=== PATIENT | female | born 1980 | race African-American/Black ===

== ENCOUNTER 2019-11-30 13:54 | Emergency (ER) | payer MEDICARE, SELFPAY ==
--- NOTE | ~2019-11-30 | US_ITS ---
EXAMINATION: US pelvic complete w TV DATE: 11/30/2019 15:09 INDICATION: Vaginal bleeding, bilateral lower abdominal pain TECHNIQUE: Multiple transabdominal and endovaginal sonographic images of the pelvis were obtained. COMPARISON: 12/15/2009 FINDINGS: The uterus measures 10.1 x 6.5 x 5.3 cm. The endometrial complex measures 19 mm. The right ovary measures 3.1 x 1.3 x 1.5 cm. The left ovary measures 2.9 x 2.6 x 2.9 cm and contains simple cys ts measuring up to 1.7 cm. There is normal vascular flow in the ovaries. There is no free fluid in th e pelvis. IMPRESSION: 1. Endometrial thickening which may be due to hyperplasia, polyp, or malignancy. Endometrial sampling is recommended. Reviewed, dictated and finalized at location A. IMPRESSION: 1. Endometrial thickening which may be due to hyperplasia, polyp, or malignancy . Endometrial sampling is recommended.
[2019-11-30 13:58] VITALS: BP 115/70; PULSE 76; RESP 18; TEMP 36.4; O2SAT 100
--- NOTE | 2019-11-30 14:19 | ED.ABDPAIN ---
HPI - Abdominal Pain General Chief Complaint: Vaginal Bleeding Stated Complaint: vaginal bleeding, using 6 pads per day Time Seen by Provider: 11/30/19 14:04 Source: RN notes reviewed History of Present Illness HPI narrative: Patient presents emergency department from home for vaginal bleeding. Patient states that for the past 14 days she is been having heavy vaginal bleeding going through approximately 6 pads a day. Patient states that starting 5 days ago she began to have bilateral lower abdominal pain described as cramping. She denies any fevers or chills chest pain shortness of breath nausea vomiting or any other symptoms states she is taking no pain medication today. 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 Data Allergies Allergy/AdvReac Type Severity Reaction Status Date / Time No Known Allergies Allergy Mild Verified 11/30/19 15:07 Review of Systems Review of Systems: Narrative: Gen.: Denies fevers or chills ENT: Denies congestion Respiratory: Denies shortness of breath or cough CV: Denies chest pain or palpitations GI: Reports lower abdominal pain denies nausea vomiting or diarrhea see HPI Musculoskeletal: Denies back pain or muscle pain Neuro: Denies numbness, tingling, weakness or focal weakness Skin: Denies rash Except as documented, all other systems reviewed and negative PMFSH Past Medical History Medical History (Updated 11/30/19 @ 15:50 by Sebastien Barroso DO) Patient denies significant medical history Family History Family History (Updated 03/05/19 @ 14:24 by DOCTOR UNKNOWN) Mother Diabetes mellitus Family history of mental disorder Depression Hypertension Father Hypertension Family history of liver disease Other Family history of cardiovascular disease Family history of malignant neoplasm Social History Social History Smoking status: Never smoker Alcohol intake: never Exam Narrative: Exam Narrative: APPEARANCE: No acute distress, nontoxic, resting in bed HEENT: Normocephalic, atraumatic, OMM RESPIRATORY: No respiratory distress, clear to auscultation bilaterally with no rhonchi wheezing or rales CARDIOVASCULAR: RRR s murmur ABDOMINAL: Soft, nondistended, tender palpation right lower quadrant left lower quadrant, no tenderness right upper quadrant left upper quadrant, no rebound or guarding : Normal external exam, moderate on document blood with clots in vaginal canal, cervix closed, no adnexal tenderness, no cervical motion tenderness MUSCULOSKELETAl: Moves all extremities. No clubbing, cyanosis or edema. NEURO: Awake and alert. Following commands, speech normal, no focal deficits SKIN:: Warm, dry. Normal Color PSYCHIATRIC: Normal affect/mood Course Course Emergency Course: Discussed with Dr. Lopez presentation work-up. Agrees with plan for discharge and follow-up as an outpatient Patient states that they are feeling much better at this time. States abdominal pain has resolved. Repeat abdominal exam shows the patient's abdomen to be soft and nontender. Discussed with patient results of workup and diagnosis. Discussed need for follow-up with primary care physician, reasons to return to the emergency department in proper use of medication. Patient understands and agrees to current treatment plan discussed thickened Ifrah need to follow with Dr. 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
[2019-11-30] MEDS: SODIUM CHLORIDE 0.9% IV 1,000 ML 999 ML IV CONT (15:08)
[2019-11-30 15:10] LABS: Basophils Percent Auto 0.3 % (0.2-1.2); Eosinophils Absolute Auto 0.2 K/mm3 (0-0.3); Eosinophils Percent Auto 2.1 % (0-4.4); Hematocrit 34.7 % (37.0-47.0); Hemoglobin 11.5 g/dL (12.0-15.0); Immature Granulocyte Absolute 0.01 K/mm3 (0.00-0.031); Immature Granulocyte Percent A 0.1 % (0-0.5); Lymphocytes Absolute Auto 2.73 K/mm3 (0.9-3.2); Lymphocytes Percent Auto 35.5 % (18.3-44.2); Mean Corpuscular HGB Conc 33.1 g/dl (32-36); Mean Corpuscular Volume 90.6 fl (80-100); Mean Platelet Volume 12.2 fl (7.4-10.4); Monocytes Absolute Auto 0.5 K/mm3 (0.1-0.6); Monocytes Percent Auto 6.1 % (2.6-8.5); Neutrophils Absolute Auto 4.3 K/mm3 (1.3-6.7); Neutrophils Percent Auto 55.9 % (45.5-73.1); Platelet Count Result 161 k/mm3 (150-375); Red Blood Count 3.83 M/mm3 (4.2-5.4); Red Cell Distribution Width 13.1 % (11.5-14.5); White Blood Count 7.7 K/mm3 (4.5-10.0)
[2019-11-30 15:18] LABS: Prothrombin Time 12.7 Seconds (11.1-14.7)
[2019-11-30 15:19] LABS: Partial Thromboplastin Time 27.8 SECONDS (22.3-36.8)
[2019-11-30 15:25] LABS: Alanine Aminotransferase 18 U/L (4-35); Alkaline Phosphatase 81 U/L (38-126); Aspartate Amino Transferase 22 U/L (14-36); Bilirubin,Total 0.4 mg/dL (0.2-1.3); Blood Urea Nitrogen 8 mg/dL (7-17); Calcium 9.1 mg/dL (8.4-10.2); Carbon Dioxide 30 mmol/L (22-30); Chloride 103 mmol/L (98-107); Estimated CRCL calculation 109 ml/min; Estimated Glomerular Filt Rate > 60; Glucose 93 mg/dL (65-105); Lipase 123 U/L (23-300); Potassium 3.6 mmol/L (3.4-5.0); Sodium 137 mmol/L (137-145)
[2019-11-30 16:20] VITALS: BP 122/67; PULSE 54; RESP 16; O2SAT 100
== END 2019-11-30 16:25 | disposition home or self-care (01) ==
PROVIDERS: Emergency Provider Emergency Medicine
DX: N93.8 Other specified abnormal uterine and vaginal bleeding (principal); R10.32 Left lower quadrant pain; R10.31 Right lower quadrant pain
CPT/HCPCS: 36415; 76830; 76856; 80053; 81025; 83690; 85025; 85610; 85730; 86850; 86900; 86901; 96374; 99284; J0131; J7030

== ENCOUNTER 2019-12-04 13:11 | Emergency (ER) | payer MEDICARE, SELFPAY ==
[2019-12-04 13:28] VITALS: BP 123/81; PULSE 84; RESP 18; TEMP 36.2; O2SAT 97
--- NOTE | 2019-12-04 13:42 | PC.NURSE ---
PT STATES SHE CALLED HER PCP AND IS GOING TO BE SEEN AT THE OFFICE, DECLINED TO BE SEEN IN THIS ED, LEFT PRIOR TO ER MD SEEING PT
[2019-12-04 13:47] LABS: Basophils Percent Auto 0.1 % (0.2-1.2); Eosinophils Absolute Auto 0.2 K/mm3 (0-0.3); Eosinophils Percent Auto 2.1 % (0-4.4); Hematocrit 30.7 % (37.0-47.0); Hemoglobin 10.1 g/dL (12.0-15.0); Immature Granulocyte Absolute 0.03 K/mm3 (0.00-0.031); Immature Granulocyte Percent A 0.4 % (0-0.5); Lymphocytes Absolute Auto 2.54 K/mm3 (0.9-3.2); Lymphocytes Percent Auto 31.8 % (18.3-44.2); Mean Corpuscular HGB Conc 32.9 g/dl (32-36); Mean Corpuscular Hemoglobin 30.2 pg (26-34); Mean Corpuscular Volume 91.9 fl (80-100); Mean Platelet Volume 12.6 fl (7.4-10.4); Monocytes Absolute Auto 0.4 K/mm3 (0.1-0.6); Monocytes Percent Auto 4.4 % (2.6-8.5); Neutrophils Absolute Auto 4.9 K/mm3 (1.3-6.7); Neutrophils Percent Auto 61.2 % (45.5-73.1); Platelet Count Result 176 k/mm3 (150-375); Red Blood Count 3.34 M/mm3 (4.2-5.4); Red Cell Distribution Width 13.5 % (11.5-14.5)
== END 2019-12-04 13:42 | disposition left against medical advice (07) ==
PROVIDERS: Emergency Medicine; Emergency Provider Emergency Medicine
DX: Z53.21 Procedure and treatment not carried out due to patient leaving prior to being seen by health care provider (principal)
CPT/HCPCS: 36415; 85025; 99199

== ENCOUNTER 2019-12-20 08:11 | Emergency (ER) | payer MEDICARE, MEDICAID, SELFPAY ==
[2019-12-20] VITALS (17 sets, daily range): BP systolic 106–126; BP diastolic 66–99; PULSE 65; RESP 18; TEMP 36.3; O2SAT 100
--- NOTE | ~2019-12-20 | US_ITS ---
EXAMINATION:US venous doppler LE BI INDICATION:Bilateral leg pain and swelling TECHNIQUE: Multiple grayscale, color flow and Doppler images of the lower extremity deep venous syste ms were obtained and reviewed. COMPARISON:No prior studies for comparison. FINDINGS: The common femoral, superficial femoral and popliteal veins demonstrate normal respiratory variation, augmentation and compressibility. Color flow is also seen within the posterior tibial, pe roneal, greater saphenous and profunda veins. There is mildly prominent right inguinal lymph node, li mor reactive. IMPRESSION: 1: No lower extremity deep venous thrombosis. Reviewed, dictated and finalized at location A.
--- NOTE | ~2019-12-20 | XR_ITS ---
XR foot RT min 3V, XR foot LT min 3V 12/20/2019 10:17 Indication: Bilateral foot pain Procedure: 4 views of each foot Comparison: No prior studies for comparison. Findings: There is mild degenerative change of the first MTP joints bilaterally with hallux valgus. N o acute fracture or dislocation is identified. Lisfranc joint and is intact. 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 Reviewed, dictated and finalized at location A. 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
--- NOTE | 2019-12-20 08:57 | ED.LOWEXIN ---
HPI - Extremity Injury (Lower) General Chief Complaint: Extremity Injury, Lower Stated Complaint: ankles hurting Time Seen by Provider: 12/20/19 08:40 Source: patient Mode of arrival: ambulatory Limitations: no limitations History of Present Illness HPI Narrative: This patient is a 39 year old female who presents with complaint of bilateral feet pain. She states she had a D and C performed 8 days ago for heavy menstrual cycle, and she has had bilateral feet pain and swelling since her procedure. She had pain with walk and she states this pain goes up to her calf . Her swelling has improved since her procedure. She reports history of swelling but she states it was due to her having gallstones. She denies chest pain or shortness of breath. She denies any medical history. Related Data Home Medications Medication Instructions Recorded Confirmed No Home Medications 12/20/19 12/20/19 Allergies Allergy/AdvReac Type Severity Reaction Status Date / Time No Known Allergies Allergy Mild Verified 12/20/19 13:13 Review of Systems Review of Systems: All systems reviewed & are unremarkable except as noted in HPI and below Constitutional: Constitutional: Denies chills and Denies fever(s) Cardiovascular: Cardiovascular: Denies chest pain and Denies radiating jaw, neck or arm pain Respiratory: Respiratory: Denies cough and Denies dyspnea Genitourinary: Genitourinary: Reports pelvic pain Integumentary/Breasts: Skin/Breast: Denies pruritus and Denies rash PMFSH Social History Social History Smoking status: Never smoker Alcohol intake: never Gender identity (if verbalized by the patient): Female Exam Narrative: Exam Narrative: GENERAL: Well-appearing, well-nourished, and in no acute distress. HEAD: Normocephalic, atraumatic EYES: PERRLA and EOMI, conjunctiva clear without discharge THROAT:Mucous membranes moist, Oropharynx normal without erythema, exudate, peritonsillar swelling or fluctuance NECK: Supple, without lymphadenopathy or mass RESPIRATORY: No respiratory distress, Airway patent, Respirations non-labored, Clear to auscultation without rales, rhonchi or wheeze HEART: Regular rate and rhythm. No murmur heard. Normal peripheral pulses. ABDOMEN: Soft, nontender, nondistended, normal active bowel sounds. No masses. No rebound or guarding, No organomegaly. EXTREMITIES: normal strength with full range of motion. mild bilateral pedal edema, strong pedal pulses SKIN: Warm, dry, normal color without rash NEURO: Alert and oriented x3. CN 2-12 grossly intact. No focal deficits. PSYCH: Normal mood and affect. Course Reevaluation(s) Reevaluation #1: I have discussed with patient she has strong pulses with no DVT detected. She has some mild swelling. I Discussed she will need to follow up with PCP Date: 12/20/19 Time: 10:51 Vital Signs Vital signs: Vital Signs Temperature 97.3 F L 12/20/19 08:26 Pulse Rate 65 12/20/19 08:26 Respiratory Rate 18 12/20/19 08:26 Blood Pressure 116/72 12/20/19 08:26 Pulse Oximetry 100 12/20/19 08:26 Temperature 97.3 F L 12/20/19 08:26 Pulse Rate 65 12/20/19 08:26 Respiratory Rate 18 12/20/19 08:26 Blood Pressure 126/99 H 12/20/19 10:47 Pulse Oximetry 100 12/20/19 10:47 MDM - Extremity Injury (Lower) Lab Data Attestation: I reviewed the patient's lab results. Lab results narrative: chronic anemia, stable Result diagrams: 12/20/19 09:13 12/20/19 09:13 Labs: Lab Results 12/20/19 12/20/19 Range/Units 09:13 09:13 WBC 7.1 (4.5-10.0) K/mm3 RBC 3.17 L (4.2-5.4) M/mm3 Hgb 9.5 L (12.0-15.0) g/dL Hct 29.8 L (37.0-47.0) % MCV 94.0 (80-100) fl MCH 30.0 (26-34) pg MCHC 31.9 L (32-36) g/dl RDW 14.3 (11.5-14.5) % Plt Count 199 (150-375) k/mm3 MPV 11.2 H (7.4-10.4) fl Immature Gran % (Auto) 0.3 (0-0.5
[2019-12-20 09:23] LABS: Basophils Percent Auto 0.3 % (0.2-1.2); Eosinophils Absolute Auto 0.3 K/mm3 (0-0.3); Eosinophils Percent Auto 4.1 % (0-4.4); Hematocrit 29.8 % (37.0-47.0); Hemoglobin 9.5 g/dL (12.0-15.0); Immature Granulocyte Absolute 0.02 K/mm3 (0.00-0.031); Immature Granulocyte Percent A 0.3 % (0-0.5); Lymphocytes Absolute Auto 2.05 K/mm3 (0.9-3.2); Mean Corpuscular HGB Conc 31.9 g/dl (32-36); Mean Platelet Volume 11.2 fl (7.4-10.4); Monocytes Absolute Auto 0.4 K/mm3 (0.1-0.6); Monocytes Percent Auto 5.1 % (2.6-8.5); Neutrophils Absolute Auto 4.3 K/mm3 (1.3-6.7); Neutrophils Percent Auto 61.2 % (45.5-73.1); Platelet Count Result 199 k/mm3 (150-375); Red Blood Count 3.17 M/mm3 (4.2-5.4); Red Cell Distribution Width 14.3 % (11.5-14.5); White Blood Count 7.1 K/mm3 (4.5-10.0)
[2019-12-20 09:42] LABS: Alanine Aminotransferase 14 U/L (4-35); Albumin Level 3.9 g/dL (3.5-5.1); Alkaline Phosphatase 88 U/L (38-126); Aspartate Amino Transferase 19 U/L (14-36); Bilirubin,Total 0.2 mg/dL (0.2-1.3); Blood Urea Nitrogen 6 mg/dL (7-17); CRP 1.2 mg/dL (<1.0); Calcium 8.6 mg/dL (8.4-10.2); Carbon Dioxide 29 mmol/L (22-30); Chloride 105 mmol/L (98-107); Estimated CRCL calculation 105 ml/min; Estimated Glomerular Filt Rate > 60; Glucose 102 mg/dL (65-105); Potassium 3.9 mmol/L (3.4-5.0); Sodium 138 mmol/L (137-145)
[2019-12-20 09:48] LABS: NT Pro B Type Natriuretic Pept 35 PG/ML (5-100)
[2019-12-20] MEDS: IBUPROFEN 400 MG TABLET 800 MG PO (11:13)
[2019-12-20] MEDS: ONDANSETRON HCL ODT 4 MG TABLET PO (11:14)
== END 2019-12-20 11:19 | disposition home or self-care (01) ==
PROVIDERS: Emergency Provider General Practice
DX: M79.89 Other specified soft tissue disorders (principal); M25.472 Effusion, left ankle; M25.471 Effusion, right ankle; M19.072 Primary osteoarthritis, left ankle and foot; M19.071 Primary osteoarthritis, right ankle and foot; M20.12 Hallux valgus (acquired), left foot; M20.11 Hallux valgus (acquired), right foot
CPT/HCPCS: 36415; 73630; 80053; 83880; 85025; 86140; 93970; 96372; 99284; A9270

== ENCOUNTER 2020-01-07 10:00 | Outpatient (CLI) | payer MEDICARE, MEDICAID, SELFPAY ==
[2020-01-07 10:46] LABS: Hematocrit 32.4 % (37.0-47.0); Hemoglobin 10.2 g/dL (12.0-15.0)
[2020-01-07 11:02] LABS: Amylase 81 U/L (30-110)
== END 2020-01-07 10:01 | disposition home or self-care (01) ==
PROVIDERS: Anesthesiology; Visit Provider Surgery
DX: Z01.812 Encounter for preprocedural laboratory examination (principal); K80.20 Calculus of gallbladder without cholecystitis without obstruction; D64.9 Anemia, unspecified
CPT/HCPCS: 36415; 82150; 85014; 85018; 86850; 86900; 86901

== ENCOUNTER 2020-01-25 00:37 | Outpatient (CLI) | payer MEDICARE, MEDICAID, SELFPAY ==
[2020-01-25 19:22] LABS: SARS-CoV-2 RNA PCR Negative
== END 2020-01-25 00:38 | disposition home or self-care (01) ==
PROVIDERS: Visit Provider Surgery
DX: Z01.812 Encounter for preprocedural laboratory examination (principal); Z11.59 Encounter for screening for other viral diseases
CPT/HCPCS: 87635; C9803; U0003

== ENCOUNTER 2020-01-28 02:15 | Day surgery (SDC) | payer MEDICARE, MEDICAID, SELFPAY ==
[2020-01-01 11:56] VITALS: BMI 45.1
[2020-01-15 17:50] VITALS: BMI 45.1
[2020-01-28] VITALS (9 sets, daily range): BP systolic 106–129; BP diastolic 71–82; PULSE 59–80; RESP 12–19; TEMP 36.3–36.6; O2SAT 94–100
--- NOTE | 2020-01-28 08:24 | WPDANESEPPF ---
Anes - Initial Pre Proc Eval Procedure: Operation Date: 01/28/20 13:30 Proposed Procedures p Laparoscopic Cholecystectomy, Possible Open - Levy Fam DO Date/Time: 01/28/20 08:24 Surgeon: Levy Fam DO Pre Op Diagnosis: Symptomatic Cholelithiasis Patient Data Age: 39 Gender: F Height: 1.68 m Weight: 127.01 kg Allergies Allergy/AdvReac Type Severity Reaction Status Date / Time No Known Allergies Allergy Mild Verified 01/28/20 11:29 Home Medications Medication Instructions Recorded Confirmed Type levonorgestrel-ethinyl estrad 1 tablet PO DAILY 01/01/20 01/28/20 History [Irina (28)] 21-iron fu-folic acid 1 tablet PO DAILY 01/01/20 01/28/20 History [ Complete] Patient hx anesthesia problems: none Family hx anesthesia problems: none PMFSH Past Medical History Medical History Anxiety Bipolar 1 disorder GERD (gastroesophageal reflux disease) History of blood clots History of kidney stones Morbid obesity with BMI of 40.0-44.9, adult Patient denies significant medical history Thyroid disease Family History Family History Mother Diabetes mellitus Family history of mental disorder Depression Hypertension Father Hypertension Family history of liver disease Other Family history of cardiovascular disease Family history of malignant neoplasm Social History Social History Smoking status: Never smoker Second hand tobacco smoke exposure: Yes Alcohol intake: current Drinks per week: 1 Substance use: never Living arrangements: with family Gender identity (if verbalized by the patient): Female Spiritual care concerns: No Anes - Eval Final PreProcedure Day of Procedure 01/28/20 08:24 Patient weight: obese Heart: regular rate and rhythm Lungs: clear to auscultation and normal air movement Airway: Mallampati scale class II Neurological: alert and oriented Last oral intake: >/= 8 hours ASA classification: III Emergent: no Anesthetic plan: proceed Anesthesia type and monitoring: general ETT Informed Consent: The patient's anesthetic plan and its attendant risks and benefits were discussed with the patient/family/POA. Questions were solicited and answers provided to the satisfaction of the patient/family/POA.
--- NOTE | 2020-01-28 11:32 | PM.IMHP ---
H&P: HPI History of Present Illness Chief complaint: Symptomatic Cholelithiasis Narrative: Mark Duval is a 39 year old female who presents for lap leeroy. She was found to have gallstones on u/s and was seen in the office. She denies any changes since last being seen. Review of Systems Review of Systems: All systems reviewed & are unremarkable except as noted in HPI and below Constitutional: Constitutional: Denies chills, Denies fever(s), Denies headache(s) and Denies weight loss Eyes: Eyes: Denies change in vision ENT: Denies dizziness, Denies headache(s), Denies neck mass and Denies throat swelling Cardiovascular: Cardiovascular: Denies chest pain, Denies lightheadedness and Denies dyspnea Respiratory: Respiratory: Denies cough, Denies dyspnea and Denies wheezing Gastrointestinal: Gastrointestinal: Denies abdominal pain, Denies change in bowel habits, Denies nausea and Denies vomiting Genitourinary: Genitourinary: Denies hematuria and Denies dysuria Musculoskeletal: Musculoskeletal: Reports as per HPI Integumentary/Breasts: Skin/Breast: Reports as per HPI Neurologic: Denies dizziness and Denies headache(s) Allergic/Immunologic: Allergic/Immunologic: Denies throat swelling and Denies wheezing PMFSH Past Medical History Medical History Anxiety Bipolar 1 disorder GERD (gastroesophageal reflux disease) History of blood clots History of kidney stones Morbid obesity with BMI of 40.0-44.9, adult Patient denies significant medical history Thyroid disease Family History Family History Mother Diabetes mellitus Family history of mental disorder Depression Hypertension Father Hypertension Family history of liver disease Other Family history of cardiovascular disease Family history of malignant neoplasm Social History Social History Smoking status: Never smoker Second hand tobacco smoke exposure: Yes Alcohol intake: current Drinks per week: 1 Substance use: never Living arrangements: with family Gender identity (if verbalized by the patient): Female Spiritual care concerns: No Meds Home Medications and Allergies Home Medications Medication Instructions Recorded Confirmed Type levonorgestrel-ethinyl estrad 1 tablet PO DAILY 01/01/20 01/28/20 History [Kurvelo (28)] 21-iron fu-folic acid 1 tablet PO DAILY 01/01/20 01/28/20 History [ Complete] Allergies Allergy/AdvReac Type Severity Reaction Status Date / Time No Known Allergies Allergy Mild Verified 01/28/20 11:29 Exam Const: General: no acute distress and alert Orientation/consciousness: patient oriented x3 HENMT: Head: normocephalic and atraumatic Ears: hearing grossly normal bilaterally General nose exam: Normal nares present Mouth: Yes Normal oral and palatal mucosa present Eyes: Periorbital: periorbital findings normal Sclera: sclerae normal EOM: EOMs intact bilaterally Neck: Neck: normal visual inspection, no lymphadenopathy and trachea midline Chest: Chest palpation & inspection: normal inspection of the chest Resp: Effort & Inspection: normal respiratory effort Auscultation: clear to auscultation bilaterally Cardio: Jugular venous distension: no JVD Rate: regular rate Rhythm: regular rhythm Heart sounds: S1 normal heart sound present and S2 normal heart sound present Peripheral pulses: Peripheral pulses 2+ throughout GI: Inspection: normal to inspection GI Palp: Yes Soft to palpation, No Tenderness to palpation present (GI), No Guarding due to palpation present (GI) and No Rebound tenderness present Percussion: Yes normal to percussion Auscultation: normal bowel sounds : General: Yes no CVA tenderness Back/Spine/Pelvis: Back: no CVA tenderness Neuro: General: patient oriented x3, no focal
[2020-01-28] MEDS: LACTATED RINGERS 1,000 ML 30 ML IV CONT ×2 (12:20→14:31)
[2020-01-28] MEDS: KETOROLAC 15 MG/ML VIAL (*BKC) IV PUSH (12:25)
[2020-01-28] MEDS: ceFAZolin 2 GM/D5W 50 ML 2 GM/50 ML BAG IVPB (13:06)
[2020-01-28] MEDS: BUPIVACAINE/EPINEPHRINE 0.5% 30 ML VIAL INFILTRATE (13:34)
--- NOTE | 2020-01-28 15:03 | PM.PROC ---
Procedure Note - Detailed Date of procedure: 01/28/20 Pre-op diagnosis: Symptomatic Cholelithiasis Post-op diagnosis: same Procedure performed: Laparoscopic Cholecystectomy Description of procedure: Procedure as well as risks, benefits, and alternatives were discussed with patient. Written consent was obtained and placed in chart prior to procedure. The patient was brought back to surgical suite. Patient was placed in supine position on operating table. Time-out was done to confirm patient and procedure. Patient was then intubated by the anesthesia department. Abdomen was prepped and draped in sterile fashion using chlorhexidine prep. 0.5% bupivacaine with epinephrine was infiltrated at each site of incision. A 5 millimeter incision was made near the umbilicus, and a 5 millimeter Optiview trocar was advanced through the abdominal layers under direct visualization. Once inside the abdominal cavity, carbon dioxide was insufflated to create a pneumoperitoneum. The camera was inserted and the abdomen was inspected. No immediate abnormalities were identified. The patient was placed in reverse Trendelenburg position and rotated slightly to the left. An 11 millimeter incision was made in the subxiphoid region, and an 11 millimeter trocar was inserted under direct visualization. Two 5 millimeter incisions were made in the right upper quadrant, and two 5 millimeter trocars were inserted under direct visualization. The gallbladder was identified and grasped at the fundus and retracted superiorly. It was then grasped at the infundibulum retracted laterally. Careful dissection around the neck of the gallbladder was performed using blunt dissection with a [place] grasper and hook electrocautery. The cystic duct was identified, and a window was created behind it. The cystic artery was also identified and a window was created behind it. The critical view of safety was identified, visualizing the cystic duct running directly into the neck of the gallbladder, and the cystic artery running directly into the wall of the gallbladder. A 5 millimeter clip basin cleaner was then used to place 2 clips proximally and 1 clip distally on both the cystic duct and cystic artery. They were then both transected using endoscopic scissors. Once safely away from the yakov hepatitis, the gallbladder was dissected free from the liver bed using hook electrocautery. Hemostasis was achieved along the way. The gallbladder was removed completely and then removed through the subxiphoid port. The liver bed was then inspected. Hemostasis appeared adequate, and our clips appeared secure. The area was gently irrigated with sterile saline. No other abnormalities were seen. The patient was flattened out in bed, and 1 final inspection was made around the abdominal cavity. The subxiphoid port was removed, and a Husam Florentino cone was used to approximate the fascia with an 0-Vicryl simple interrupted suture. The remaining ports were then removed under direct visualization, the camera was removed, and the pneumoperitoneum was released. The skin of the incisions was approximated using 4-0 Monocryl subcuticular sutures. Exofin glue was applied on top. The patient was then awakened from anesthesia, extubated, and transferred to recovery. Anesthesia: GETA and local (0.5% bupivicaine with epi) Surgeon: Levy Fam DO Estimated blood loss (mL): 5 Drains: No Packing: No Pathology: yes Complications: No immediate complications Condition: stable (Patient tolerated procedure well, and is currently resting comfortably in recovery.) Disposition: same day Findings: This is a 39-year-old woman who presents with intermittent upper abdominal pains over the past couple years. About 1 year ago she had a gallbladder ultrasound which showed evidence of a stone filled gallbladder. She held off on surgery at the time due to work concerns. She now continues to have intermittent pains and was re-evaluated. Dec
== END 2020-01-28 16:55 | disposition home or self-care (01) ==
PROVIDERS: Visit Provider Surgery
PROC: 0FT44ZZ Resection of Gallbladder, Percutaneous Endoscopic Approach (ICD-10-PCS; CPT 47562; principal; 2020-01-28 13:30)
DX: K80.10 Calculus of gallbladder with chronic cholecystitis without obstruction (principal); E66.01 Morbid (severe) obesity due to excess calories; Z68.41 Body mass index [BMI] 40.0-44.9, adult; F31.9 Bipolar disorder, unspecified; F41.9 Anxiety disorder, unspecified; Z86.718 Personal history of other venous thrombosis and embolism; Z79.3 Long term (current) use of hormonal contraceptives; Z79.891 Long term (current) use of opiate analgesic; Z79.899 Other long term (current) drug therapy
CPT/HCPCS: 47562; 36415; 86850; 86900; 86901; 87635; 88304; A9270; C9803; J0330; J0690; J1100; J1885; J2250; J2704; J2710; J3010; J7030; J7120; U0003

== ENCOUNTER 2020-02-05 20:04 | Emergency (ER) | payer MEDICARE, MEDICAID, SELFPAY ==
--- NOTE | ~2020-02-05 | CT_ITS ---
EXAMINATION: CT abdomen pelvis w con DATE: 02/05/2020 21:33 INDICATION: Generalized abdominal pain. Recent cholecystectomy. TECHNIQUE: Computed tomography (CT) of the abdomen and pelvis was performed with 100 cc Omnipaque 350 intravenous contrast. The dose-length product was 1437.40 mGy-cm. Automated exposure control and ite rative reconstruction technique were employed. COMPARISON: CT dated 05/16/2015 FINDINGS: There is bibasilar atelectasis. Heart size normal. No significant pleural or pericardial ef fusion. There are cholecystectomy clips. There is fluid in the gallbladder fossa, likely postsurgical. Otherw ise, the liver, spleen, pancreas, adrenal glands and kidneys are unremarkable. Nonobstructive bowel g as pattern. Small amount of free fluid in the pelvis. No significant vascular abnormality. No lymphad enopathy. There is moderate fecal loading of the cecum. IMPRESSION: 1. Status post recent cholecystectomy with fluid/stranding in the gallbladder fossa, likely surgical. Reviewed, dictated and finalized at location A. IMPRESSION: 1. Status post recent cholecystectomy with fluid/stranding in the gallbladder f rehan, likely surgical.
[2020-02-05 20:08] VITALS: BP 147/92; PULSE 85; RESP 20; TEMP 36.9; O2SAT 100
[2020-02-05 20:43] LABS: Basophils Percent Auto 0.2 % (0.2-1.2); Eosinophils Absolute Auto 0.3 K/mm3 (0-0.3); Eosinophils Percent Auto 2.6 % (0-4.4); Hematocrit 34.8 % (37.0-47.0); Hemoglobin 10.9 g/dL (12.0-15.0); Immature Granulocyte Absolute 0.04 K/mm3 (0.00-0.031); Immature Granulocyte Percent A 0.4 % (0-0.5); Lymphocytes Absolute Auto 3.24 K/mm3 (0.9-3.2); Lymphocytes Percent Auto 33.4 % (18.3-44.2); Mean Corpuscular HGB Conc 31.3 g/dl (32-36); Mean Corpuscular Hemoglobin 27.1 pg (26-34); Mean Corpuscular Volume 86.6 fl (80-100); Mean Platelet Volume 12.4 fl (7.4-10.4); Monocytes Absolute Auto 0.7 K/mm3 (0.1-0.6); Monocytes Percent Auto 6.9 % (2.6-8.5); Neutrophils Absolute Auto 5.5 K/mm3 (1.3-6.7); Neutrophils Percent Auto 56.5 % (45.5-73.1); Platelet Count Result 215 k/mm3 (150-375); Red Blood Count 4.02 M/mm3 (4.2-5.4); Red Cell Distribution Width 13.2 % (11.5-14.5); White Blood Count 9.7 K/mm3 (4.5-10.0)
[2020-02-05] MEDS: SODIUM CHLORIDE 0.9% IV 1,000 ML 999 ML IV CONT (20:49)
[2020-02-05 20:50] VITALS: BP 159/74; PULSE 70; RESP 16; O2SAT 98
[2020-02-05 20:53] LABS: Alanine Aminotransferase 14 U/L (4-35); Albumin Level 4.3 g/dL (3.5-5.1); Alkaline Phosphatase 94 U/L (38-126); Anion Gap 12.9 mmol/L (7-16); Aspartate Amino Transferase 27 U/L (14-36); Bilirubin,Total 0.5 mg/dL (0.2-1.3); Blood Urea Nitrogen 8 mg/dL (7-17); Calcium 9.3 mg/dL (8.4-10.2); Carbon Dioxide 27 mmol/L (22-30); Chloride 102 mmol/L (98-107); Estimated CRCL calculation 123 ml/min; Estimated Glomerular Filt Rate > 60; Glucose 103 mg/dL (65-105); Lipase 128 U/L (23-300); Potassium 3.9 mmol/L (3.4-5.0); Sodium 138 mmol/L (137-145)
--- NOTE | 2020-02-05 20:53 | ED.ABDPAIN ---
HPI - Abdominal Pain General Chief Complaint: Abdominal Pain Stated Complaint: post op pain Time Seen by Provider: 02/05/20 20:33 Source: patient History of Present Illness HPI narrative: 39 years old -[place] female status post cholecystectomy on January 27 been having pain at the right upper quadrant since. Patient also reports fresh red bright blood with every bowel movement since the surgery until now. Patient reported having 1 bowel movement once a day. Related Data Home Medications Medication Instructions Recorded Confirmed Complete 1 tablet PO DAILY 01/01/20 01/28/20 levonorgestrel-ethinyl estrad 1 tablet PO DAILY 01/01/20 01/28/20 [Kurvelo (28)] ferrous sulfate 02/05/20 02/05/20 Allergies Allergy/AdvReac Type Severity Reaction Status Date / Time No Known Allergies Allergy Mild Verified 01/28/20 11:29 Review of Systems Review of Systems: Narrative: CONSTITUTIONAL: Denies fever, chills, or sweats. EYES: Denies visual changes, redness, or discharge. ENT: Denies rhinorrhea, congestion, sore throat, or otalgia. CARDIOVASCULAR: Denies chest pain, palpitations, or edema. RESPIRATORY: Denies cough or dyspnea. GASTROINTESTINAL: Right abdominal pain GENITOURINARY: Denies dysuria or hematuria. SKIN: Denies rash or itching. MUSCULOSKELETAL: Denies back pain, joint pain, or myalgia. NEUROLOGIC: Denies headache, numbness, or weakness. PSYCHIATRIC: Denies anxiety or depression. [facility] Past Medical History Medical History Anxiety Bipolar 1 disorder GERD (gastroesophageal reflux disease) History of blood clots History of kidney stones Morbid obesity with BMI of 40.0-44.9, adult Patient denies significant medical history Thyroid disease Family History Family History Mother Diabetes mellitus Family history of mental disorder Depression Hypertension Father Hypertension Family history of liver disease Other Family history of cardiovascular disease Family history of malignant neoplasm Social History Social History Smoking status: Never smoker Second hand tobacco smoke exposure: Yes Alcohol intake: current Drinks per week: 1 Substance use: never Gender identity (if verbalized by the patient): Female Spiritual care concerns: No Exam Narrative: Exam Narrative: General appearance: Well-developed, well-nourished Skin: Normal color Head: Normocephalic, nontraumatic Eyes: Clear conjunctiva ENT: Oropharynx normal, ears normal, nose normal Neck: Supple, nontender Chest and respiratory: Airway patent, no respiratory distress, no accessory muscle use Heart: Regular rate/rhythm Abdomen: Surgical scar dry and clean, severe tenderness right upper quadrant with light palpation, quiet bowel sounds. Rectal exam showed no stool or blood in the rectal pouch, guaiac negative Vascular: Normal peripheral pulses, normal capillary refill. 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 Orellana MiraLAX twice daily for constipation Date: 02/05/20 Time: 22:32 Vital Signs Vital signs: Vital Signs Temperature 36.9 C 02/05/20 20:08 Pulse Rate 85 02/05/20 20:08 Respiratory Rate 20 02/05/20 20:08 Blood Pressure 147/92 H 02/05/20 20:08 Pulse Oximetry 100 02/05/20 20:08 Temperature 36.9 C 02/05/20 20:08 Pulse Rate 70 02/05/20 20:50 Respiratory Rate 16 02/05/20 20:50 B
[2020-02-05] MEDS: ONDANSETRON INJ 4 MG/2 ML VIAL IV PUSH (21:06)
[2020-02-05] MEDS: MORPHINE SULFATE 4 MG/ML INJ IV PUSH (21:06)
[2020-02-05 21:23] LABS: Add Urine Microscopic? YES; Appearance Urine Clear (Clear); Bacteria Urine Trace /hpf; Bilirubin Urine Negative (Negative); Blood Urine 1+ (Negative); Color Urine Yellow (Yellow); Glucose Urine UA Negative (Negative); Ketones Urine Negative (Negative); Leukocyte Esterase Ur Trace LEU/UL (Negative); Mucus Urine Few /lpf; Nitrate Urine Negative (Negative); Protein Urine Negative (Negative); RBC Urine 0-2 /hpf (0-2); Specific Grav Ur 1.026 (1.001-1.035); Squamous Epithelial Cell Urine Few /hpf (Few); WBC Urine 0-3 /hpf
[2020-02-05 23:04] VITALS: BP 152/87; PULSE 82; RESP 20; O2SAT 97
--- NOTE | 2020-02-13 03:31 | PC.NURSE ---
LATE ENTRY This note is being entered to document information to the patient's record. The following information was omitted on [02/05/20 ],normal saline stop time-@2250 by [bolivar mejia].
== END 2020-02-05 23:08 | disposition home or self-care (01) ==
PROVIDERS: Emergency Provider Emergency Medicine
DX: K91.5 Postcholecystectomy syndrome (principal); K59.01 Slow transit constipation; K62.5 Hemorrhage of anus and rectum; K21.9 Gastro-esophageal reflux disease without esophagitis; Z87.442 Personal history of urinary calculi; E66.01 Morbid (severe) obesity due to excess calories; Z68.41 Body mass index [BMI] 40.0-44.9, adult; E07.9 Disorder of thyroid, unspecified
CPT/HCPCS: 36415; 74177; 80053; 81001; 83690; 85025; 96361; 96374; 96375; 99284; J2270; J2405; J7030; Q9967

== ENCOUNTER 2021-04-27 09:47 | Emergency (ER) | payer MEDICARE, MEDICAID, SELFPAY ==
[2021-04-27 09:59] VITALS: BP 106/72; PULSE 87; RESP 16; TEMP 35.7; O2SAT 100
--- NOTE | 2021-04-27 10:03 | ED.ABDPAIN ---
HPI - Abdominal Pain General Chief Complaint: Nausea/Vomiting/Diarrhea Stated Complaint: Throwing Up Time Seen by Provider: 04/27/21 10:00 Source: patient and RN notes reviewed Mode of arrival: ambulatory Limitations: no limitations History of Present Illness HPI narrative: 41-year-old female presents to the [facility] with complaints of generalized abdominal pain, nausea, vomiting and diarrhea for the last 4 days. Patient states that she has been not been able to eat or drink for the last 4 days. Feels very dehydrated requesting IV fluids for hydration. MD elicited complaint: abdominal pain Quality: cramping Related Data Home Medications Medication Instructions Recorded Confirmed Complete 1 tablet PO DAILY 01/01/20 02/22/20 levonorgestrel-ethinyl estrad 1 tablet PO DAILY 01/01/20 02/22/20 [Irina (28)] ferrous sulfate 02/05/20 02/22/20 Allergies Allergy/AdvReac Type Severity Reaction Status Date / Time No Known Allergies Allergy Mild Verified 04/27/21 10:01 Review of Systems Review of Systems: All systems reviewed & are unremarkable except as noted in HPI and below Constitutional: Constitutional: Reports no additional constitutional complaints, Denies chills and Denies fever(s) Eyes: Eyes: Reports no additional eye complaints ENT: Reports system reviewed and no additional complaints, except as documented Cardiovascular: Cardiovascular: Reports no additional cardiovascular complaints and Denies chest pain Respiratory: Respiratory: Reports no additional respiratory complaints, Denies cough and Denies dyspnea Gastrointestinal: Gastrointestinal: Reports as per HPI, Reports abdominal pain, Reports diarrhea, Reports nausea and Reports vomiting Genitourinary: Genitourinary: Reports no additional female genitourinary complaints Musculoskeletal: Musculoskeletal: Reports no additional musculoskeletal complaints Integumentary/Breasts: Skin/Breast: Reports system reviewed and no additional complaints, except as docu Neurologic: Reports system reviewed and no additional complaints, except as documented Psychiatric: Psychiatric: Reports no additional psychiatric complaints Allergic/Immunologic: Allergic/Immunologic: Reports no additional allergic/immunologic complaints [facility] Past Medical History Medical History (Updated 04/27/21 @ 12:43 by Daren Sosa MD) Anxiety Bipolar 1 disorder GERD (gastroesophageal reflux disease) History of blood clots History of kidney stones Morbid obesity with BMI of 40.0-44.9, adult Patient denies significant medical history Thyroid disease Surgical History Surgical History S/P laparoscopic cholecystectomy 01/28/2020 Family History Family History Mother Diabetes mellitus Family history of mental disorder Depression Hypertension Father Hypertension Family history of liver disease Other Family history of cardiovascular disease Family history of malignant neoplasm Social History Social History Smoking status: Never smoker Second hand tobacco smoke exposure: Yes Alcohol intake: current Drinks per week: 1 Substance use: never Gender identity (if verbalized by the patient): Female Spiritual care concerns: No Comments At the time of my signature, I reviewed and agree with the nursing past medical, surgical, social, and family history. There is no relevant family history pertinent to the patient complaint. Exam Const: General: healthy appearing, no acute distress and alert Nutritional Appearance: obese Orientation/consciousness: patient oriented x3 Limitations: no limitations HENMT: Head: normal to inspection Ears: hearing grossly normal bilaterally General nose exam: Normal external nose present Face and sinus: normal facial exam Mouth: Yes dry mucous membranes Throat:
== END 2021-04-27 10:08 | disposition short-term general hospital (02) ==
LOC: EXPCOLL 09:52
PROVIDERS: Emergency Provider Nurse Practitioner
DX: R10.84 Generalized abdominal pain (principal); K21.9 Gastro-esophageal reflux disease without esophagitis; E07.9 Disorder of thyroid, unspecified; E66.01 Morbid (severe) obesity due to excess calories; Z68.42 Body mass index [BMI] 45.0-49.9, adult
CPT/HCPCS: 99212; G0463

== ENCOUNTER 2021-04-27 10:46 | Emergency (ER) | payer OTHER, SELFPAY ==
--- NOTE | ~2021-04-27 | CT_ITS ---
EXAMINATION: CT abdomen pelvis w con DATE: 04/27/2021 12:09 INDICATION: Abdominal pain TECHNIQUE: Computed tomography (CT) of the abdomen and pelvis was performed with 100 mL Omnipaque-350 intravenous contrast. Automated exposure control and iterative reconstruction technique were employe d. The dose-length product was 1588.19 mGy-cm. COMPARISON: 02/05/2020 FINDINGS: Lung bases are clear. Heart size is normal. No pericardial or pleural effusion. Cholecystectomy clips at the gallbladder fossa. Liver, spleen, pancreas, bilateral adrenal glands and kidneys are normal. Normal appendix. No abnormal bowel wall thickening or obstruction. Bladder is normal with left-sided contrast opacified ureteral jet. No free intraperitoneal gas or fluid. No pathologically enlarged abd ominal or pelvic lymphadenopathy. Mild lumbar dextrocurvature. Bones are otherwise unremarkable. IMPRESSION: 1. No acute intra-abdominal/pelvic process. Reviewed, dictated and finalized at location A.
[2021-04-27 11:06] VITALS: BP 130/77; PULSE 66; RESP 20; TEMP 36.9; O2SAT 99
[2021-04-27] MEDS: SODIUM CHLORIDE 0.9% IV 1,000 ML 999 ML IV CONT (11:25)
[2021-04-27 11:29] LABS: Basophils Percent Auto 0.3 % (0.2-1.2); Eosinophils Absolute Auto 0.2 K/mm3 (0-0.3); Hematocrit 37.9 % (37.0-47.0); Hemoglobin 12.6 g/dL (12.0-15.0); Immature Granulocyte Absolute 0.02 K/mm3 (0.00-0.031); Immature Granulocyte Percent A 0.3 % (0-0.5); Lymphocytes Absolute Auto 2.54 K/mm3 (0.9-3.2); Lymphocytes Percent Auto 34.7 % (18.3-44.2); Mean Corpuscular HGB Conc 33.2 g/dl (32-36); Mean Corpuscular Hemoglobin 30.3 pg (26-34); Mean Corpuscular Volume 91.1 fl (80-100); Mean Platelet Volume 12.7 fl (7.4-10.4); Monocytes Absolute Auto 0.3 K/mm3 (0.1-0.6); Monocytes Percent Auto 4.2 % (2.6-8.5); Neutrophils Absolute Auto 4.3 K/mm3 (1.3-6.7); Neutrophils Percent Auto 58.5 % (45.5-73.1); Platelet Count Result 164 k/mm3 (150-375); Red Blood Count 4.16 M/mm3 (4.2-5.4); Red Cell Distribution Width 12.9 % (11.5-14.5); White Blood Count 7.3 K/mm3 (4.5-10.0)
[2021-04-27 11:36] LABS: Add Urine Microscopic? YES; Appearance Urine Cloudy (Clear); Bilirubin Urine Negative (Negative); Blood Urine Negative (Negative); Color Urine Yellow (Yellow); Glucose Urine UA Negative (Negative); Ketones Urine Negative (Negative); Leukocyte Esterase Ur Negative LEU/UL (Negative); Nitrate Urine Negative (Negative); Protein Urine Negative (Negative); RBC Urine 0-2 /hpf (0-2); Specific Grav Ur 1.025 (1.001-1.035)
[2021-04-27 11:37] LABS: Bacteria Urine 3+ /hpf; Squamous Epithelial Cell Urine Many /hpf (Few); WBC Urine 0-3 /hpf (0-3)
[2021-04-27 11:38] LABS: Mucus Urine Few /lpf
[2021-04-27 11:43] LABS: Alanine Aminotransferase 16 U/L (4-35); Albumin Level 4.1 g/dL (3.5-5.1); Alkaline Phosphatase 78 U/L (38-126); Anion Gap 4 mmol/L (8-16); Aspartate Amino Transferase 21 U/L (14-36); Bilirubin,Total 0.7 mg/dL (0.2-1.3); Blood Urea Nitrogen 8 mg/dL (7-17); Carbon Dioxide 32 mmol/L (22-30); Chloride 104 mmol/L (98-107); Estimated CRCL calculation 108 ml/min; Estimated Glomerular Filt Rate > 60; Glucose 100 mg/dL (65-110); Lipase 298 U/L (23-300); Potassium 3.7 mmol/L (3.4-5.0); Sodium 140 mmol/L (137-145)
[2021-04-27] MEDS: ONDANSETRON INJ 4 MG/2 ML VIAL IV PUSH (12:13)
[2021-04-27] MEDS: MORPHINE SULFATE (*CRX) 4 MG/ML INJ IV PUSH (12:13)
--- NOTE | 2021-04-27 12:37 | ED.ABDPAIN ---
HPI - Abdominal Pain General Chief Complaint: Abdominal Pain Stated Complaint: abd pain/vomiting Time Seen by Provider: 04/27/21 11:14 Source: patient Mode of arrival: ambulatory Limitations: no limitations History of Present Illness HPI narrative: Patient is 41 years old -[place] female presents to the ED with mid abdominal pain, across a started 4 days ago associated with vomiting at least 4 times a day, diarrhea at least 3 times a day. Patient denies any fever, chills, shortness of breath, chest pain. 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 Eats different kind of food. History of cholecystectomy, hysterectomy. Patient does not smoke or uses drugs, drinks occasionally. Related Data Home Medications Medication Instructions Recorded Confirmed Complete 1 tablet PO DAILY 01/01/20 02/22/20 levonorgestrel-ethinyl estrad 1 tablet PO DAILY 01/01/20 02/22/20 [Irina (28)] ferrous sulfate 02/05/20 02/22/20 Allergies Allergy/AdvReac Type Severity Reaction Status Date / Time No Known Allergies Allergy Mild Verified 04/27/21 10:01 Review of Systems Review of Systems: CONSTITUTIONAL: Denies fever, chills, or sweats. EYES: Denies visual changes, redness, or discharge. ENT: Denies rhinorrhea, congestion, sore throat, or otalgia. CARDIOVASCULAR: Denies chest pain, palpitations, or edema. RESPIRATORY: Denies cough or dyspnea. GASTROINTESTINAL: Denies abdominal pain, nausea, vomiting, or diarrhea. GENITOURINARY: Denies dysuria or hematuria. SKIN: Denies rash or itching. MUSCULOSKELETAL: Denies back pain, joint pain, or myalgia. NEUROLOGIC: Denies headache, numbness, or weakness. PSYCHIATRIC: Denies anxiety or depression. FORMERLY [facility], 1928–1983 Past Medical History Medical History (Updated 04/27/21 @ 12:43 by Daren Sosa MD) Anxiety Bipolar 1 disorder GERD (gastroesophageal reflux disease) History of blood clots History of kidney stones Morbid obesity with BMI of 40.0-44.9, adult Patient denies significant medical history Thyroid disease Surgical History Surgical History S/P laparoscopic cholecystectomy 01/28/2020 Family History Family History Mother Diabetes mellitus Family history of mental disorder Depression Hypertension Father Hypertension Family history of liver disease Other Family history of cardiovascular disease Family history of malignant neoplasm Social History Social History Smoking status: Never smoker Second hand tobacco smoke exposure: Yes Alcohol intake: current Drinks per week: 1 Substance use: never Gender identity (if verbalized by the patient): Female Spiritual care concerns: No Exam Narrative: General appearance: Well-developed, well-nourished Skin: Normal color Head: Normocephalic, nontraumatic Eyes: Clear conjunctiva ENT: Oropharynx normal, ears normal, nose normal Neck: Supple, nontender Chest and respiratory: Airway patent, no respiratory distress, no accessory muscle use Heart: Regular rate/rhythm Abdomen: Soft, mild diffuse tenderness, no guarding or rebound,, no organomegaly, quiet bowel sounds Vascular: Normal peripheral pulses, normal capillary refill. Musculoskeletal: Normal range of motion, nontender back Neurologic: Alert and oriented ?3, [employer] is normal as tested, no gross motor deficit Course Course Emergency Course: Stable Vital Signs Vital signs: Vital Signs Temperature 36.9 C 04/27/21 11:06 Pulse Rate 66 04/27/21 11:06 Respiratory Rate 20 04/27/21 11:06 B
[2021-04-27 13:04] VITALS: BP 108/65; PULSE 60; RESP 16; O2SAT 99
== END 2021-04-27 13:05 | disposition home or self-care (01) ==
PROVIDERS: Emergency Provider Emergency Medicine
DX: K52.9 Noninfective gastroenteritis and colitis, unspecified (principal); K21.9 Gastro-esophageal reflux disease without esophagitis; Z87.442 Personal history of urinary calculi; E66.01 Morbid (severe) obesity due to excess calories; Z68.42 Body mass index [BMI] 45.0-49.9, adult; E07.9 Disorder of thyroid, unspecified
CPT/HCPCS: 36415; 74177; 80053; 81001; 83690; 85025; 96361; 96374; 96375; 99284; J2270; J2405; J7030; Q9967

== ENCOUNTER 2021-05-01 11:44 | Emergency (ER) | payer OTHER, SELFPAY ==
[2021-05-01 11:55] VITALS: BP 134/79; PULSE 71; RESP 18; TEMP 36.6; O2SAT 99
--- NOTE | 2021-05-01 12:21 | ED.GENADULT ---
HPI - General Adult General Chief complaint: Unspecified Stated complaint: needs dr release Time Seen by Provider: 05/01/21 12:16 Source: patient Mode of arrival: ambulatory Limitations: no limitations History of Present Illness HPI narrative: Patient is a 41-year-old female who is here for a work note. Patient states that she was seen here on April 27 for nausea vomiting diarrhea. Patient needs a work release. Patient has no complaints at this time. Related Data Home Medications Medication Instructions Recorded Confirmed Complete 1 tablet PO DAILY 01/01/20 02/22/20 levonorgestrel-ethinyl estrad 1 tablet PO DAILY 01/01/20 02/22/20 [Irina (28)] ferrous sulfate 02/05/20 02/22/20 Allergies Allergy/AdvReac Type Severity Reaction Status Date / Time No Known Allergies Allergy Mild Verified 05/01/21 12:09 Review of Systems Review of Systems: All systems reviewed & are unremarkable except as noted in HPI and below Constitutional: Constitutional: Denies body ache(s), Denies chills, Denies excessive sweating, Denies fatigue, Denies fever(s), Denies headache(s), Denies lethargy, Denies malaise, Denies weakness and Denies weight loss Eyes: Eyes: Denies blurry vision, Denies change in vision and Denies loss of vision ENT: Denies dizziness, Denies ear discharge, Denies headache(s), Denies lip swelling, Denies epistaxis, Denies nasal congestion, Denies neck pain, Denies throat swelling and Denies tongue swelling Cardiovascular: Cardiovascular: Denies chest pain, Denies chest pain at rest, Denies chest pain with activity, Denies diaphoresis, Denies rapid heart rate, Denies edema, Denies irregular heart rhythm, Denies lightheadedness, Denies palpitations, Denies dyspnea and Denies dyspnea on exertion Respiratory: Respiratory: Denies chest congestion, Denies cough, Denies hemoptysis, Denies dyspnea and Denies dyspnea on exertion Gastrointestinal: Gastrointestinal: Denies abdominal pain, Denies melena, Denies hematochezia, Denies diarrhea, Denies nausea, Denies vomiting and Denies hematemesis Musculoskeletal: Musculoskeletal: Denies abnormal gait, Denies deformity, Denies joint swelling, Denies limited range of motion, Denies neck pain and Denies numbness Neurologic: Denies Abnormal speech present, Denies abnormal gait, Denies confusion, Denies dizziness, Denies headache(s), Denies focal weakness, Denies loss of vision, Denies numbness, Denies Other visual disturbances, Denies Sensory deficit (Neuro) and Denies weakness Psychiatric: Psychiatric: Denies confusion, Denies depression, Denies auditory hallucinations, Denies homicidal ideation and Denies suicidal ideation Endocrine: Endocrine: Denies cold intolerance, Denies excessive sweating, Denies fatigue, Denies heat intolerance and Denies palpitations Hematologic/Lymphatic: Hematologic/Lymphatic: Denies easy bleeding and Denies easy bruising Allergic/Immunologic: Allergic/Immunologic: Denies lip swelling, Denies throat swelling and Denies tongue swelling PMF Past Medical History Medical History (Updated 05/01/21 @ 12:24 by Sebastien Goncalves MD) Anxiety Bipolar 1 disorder GERD (gastroesophageal reflux disease) History of blood clots History of kidney stones Morbid obesity with BMI of 40.0-44.9, adult Patient denies significant medical history Thyroid disease Surgical History Surgical History S/P laparoscopic cholecystectomy 01/28/2020 Family History Family History Mother Diabetes mellitus Family history of mental disorder Depression Hypertension Father Hypertension Family history of liver disease Other Family history of cardiovascular disease Family history of malignant neoplasm Social History Social History Smoking status: Never smoker Second hand tobacco smoke exposure:
== END 2021-05-01 13:15 | disposition home or self-care (01) ==
PROVIDERS: Emergency Provider Emergency Medicine
DX: K52.9 Noninfective gastroenteritis and colitis, unspecified (principal)
CPT/HCPCS: 99281

== ENCOUNTER 2022-03-12 18:45 | Emergency (ER) | payer OTHER, SELFPAY ==
--- NOTE | ~2022-03-12 | XR_ITS ---
EXAMINATION: XR shoulder LT min 2V DATE: 03/12/2022 20:32 INDICATION: Anterior left shoulder pain with tenderness to the touch. TECHNIQUE: AP internally and externally rotated, AP oblique externally rotated and transscapular Y vi ews of the left shoulder were obtained. COMPARISON: None FINDINGS: Mild widening of the left acromioclavicular joint which measures approximately 8 mm without craniocau jacqueline subluxation. Alignment is otherwise normal. Moderate joint space narrowing at the left glenohumer al joint with small marginal osteophytes along the inferior aspect of the humeral head. No fracture. Soft tissues are unremarkable. Visualized portions of the lungs are clear. IMPRESSION: 1. Mild widening of the left chromic clavicular joint which could be due to low-grade acromioclavicul ar joint separation or prior surgery in the appropriate clinical setting. 2. Moderate joint space narrowing at the left glenohumeral joint consistent with nonspecific arthriti s. Reviewed, dictated and finalized at location A. IMPRESSION: 1. Mild widening of the left chromic clavicular joint which could be due to low -grade acromioclavicular joint separation or prior surgery in the appropriate c linical setting. 2. Moderate joint space narrowing at the left glenohumeral joint consistent wit h nonspecific arthritis.
--- NOTE | ~2022-03-12 | XR_ITS ---
EXAMINATION:XR_[id number]_CR DATE: 03/12/2022 20:33 INDICATION: Sudden neck pain radiating down the left arm post injury one day prior TECHNIQUE: AP, lateral and odontoid views of the cervical spine are provided. COMPARISON: None FINDINGS: Mild cervical thoracic dextrocurvature. Slight reversal of the normal cervical lordosis which could b e positional or due to muscle spasm. No spondylolisthesis or facet subluxation. Odontoid is intact. Normal atlantoaxial interval. Vertebral body heights are normal. Disc spaces are normal. Prevertebra l soft tissues are normal. IMPRESSION: 1. Mild reversal of the normal cervical lordosis which could be positional or due to muscle spasm. No other acute osseous abnormality. Reviewed, dictated and finalized at location A. IMPRESSION: 1. Mild reversal of the normal cervical lordosis which could be positional or d ue to muscle spasm. No other acute osseous abnormality.
[2022-03-12 18:52] VITALS: BP 119/79; PULSE 69; RESP 14; TEMP 36.1; O2SAT 100
--- NOTE | 2022-03-12 20:15 | ED.UPPEXIN ---
HPI - Extremity Injury (Upper) General Chief Complaint: Extremity Injury, Upper Stated Complaint: left shoulder injury from work Time Seen by Provider: 03/12/22 19:55 Source: patient Mode of arrival: ambulatory Limitations: no limitations History of Present Illness HPI narrative: This is a 42 year old female that presents to the ER after an injury at work last night. Reports a pulling injury. Reports pain in the left side of her neck and left shoulder. Denies decreased ROM or numbness. Related Data Home Medications Medication Instructions Recorded Confirmed levonorgestrel 0.15 mg-ethinyl 1 tablet PO DAILY 01/01/20 02/22/20 estradiol 0.03 mg tablet (Kurvelo (28)) vits,calcium 21-iron fum 1 tablet PO DAILY 01/01/20 02/22/20 14 mg iron-folic acid 400 mcg tablet ( Complete) ferrous sulfate 325 mg (65 mg 02/05/20 02/22/20 iron) tablet Allergies Allergy/AdvReac Type Severity Reaction Status Date / Time No Known Allergies Allergy Mild Verified 05/01/21 12:09 Review of Systems Review of Systems: CONSTITUTIONAL: Denies fever MUSCULOSKELETAL: Reports joint pain, and myalgia. NEUROLOGIC: Denies numbness, or weakness. All systems reviewed & are unremarkable except as noted in HPI and below PMFSH Past Medical History Medical History (Updated 03/12/22 @ 21:17 by Sherley Kahn PA-C) Anxiety Bipolar 1 disorder GERD (gastroesophageal reflux disease) History of blood clots History of kidney stones Morbid obesity with BMI of 40.0-44.9, adult Patient denies significant medical history Thyroid disease Surgical History Surgical History (Updated 03/12/22 @ 20:16 by Sehrley Kahn PA-C) History of hysterectomy S/P laparoscopic cholecystectomy 01/28/2020 Family History Family History Mother Diabetes mellitus Family history of mental disorder Depression Hypertension Father Hypertension Family history of liver disease Other Family history of cardiovascular disease Family history of malignant neoplasm Social History Social History Smoking status: Never smoker Second hand tobacco smoke exposure: Yes Alcohol intake: current Drinks per week: 1 Substance use: never Gender identity (if verbalized by the patient): Female Spiritual care concerns: No Exam Narrative: GENERAL: Well-appearing, well-nourished, and in no acute distress. HEAD: Normocephalic, atraumatic. EYES: EOMI. NECK: Supple. No adenopathy or masses. No midline spinal tenderness CHEST: Clear to auscultation. No respiratory distress. No wheezes rales or rhonchi HEART: Regular rate and rhythm. No murmur heard. Normal peripheral pulses. EXTREMITIES: Decreased active ROM in the left shoulder above 90 degrees. No edema or obvious deformity. Strength equal in bilateral upper extremities (5/5) SKIN: Warm, dry, no rash. NEURO: No focal deficits. Alert and oriented x3. PSYCH: Normal mood and affect Course Vital Signs Vital signs: Vital Signs Temperature 97.0 F L 03/12/22 18:52 Pulse Rate 69 03/12/22 18:52 Respiratory Rate 14 03/12/22 18:52 Blood Pressure 119/79 03/12/22 18:52 Pulse Oximetry 100 03/12/22 18:52 Oxygen Delivery Room Air 03/12/22 18:52 Temperature 97.0 F L 03/12/22 18:52 Pulse Rate 69 03/12/22 18:52 Respiratory Rate 14 03/12/22 18:52 Blood Pressure 119/79 03/12/22 18:52 Pulse Oximetry 100 03/12/22 18:52 Oxygen Delivery Room Air 03/12/22 18:52 MDM - Extremity Injury (Upper) MDM Narrative Medical decision making narrative: Patient presents to the emergency department for left shoulder pain after an injury yesterday. Shoulder x-ray shows mild widening of the left AC joint which could be due to a low-grade AC separation. Cervical spine x-ray shows findings consistent with muscle spasm. Patient was updated on case findings. P
[2022-03-12] MEDS: CYCLOBENZAPRINE HCL 10 MG TABLET PO (20:37)
[2022-03-12] MEDS: ACETAMINOPHEN 500 MG TABLET 1000 MG PO (20:37)
== END 2022-03-12 21:29 | disposition home or self-care (01) ==
PROVIDERS: Emergency Provider Emergency Medicine; PCP Emergency Medicine
DX: S43.102A Unspecified dislocation of left acromioclavicular joint, initial encounter (principal); X50.0XXA Overexertion from strenuous movement or load, initial encounter; Y99.0 Civilian activity done for income or pay; K21.9 Gastro-esophageal reflux disease without esophagitis; E66.01 Morbid (severe) obesity due to excess calories; Z68.41 Body mass index [BMI] 40.0-44.9, adult; Z86.2 Personal history of diseases of the blood and blood-forming organs and certain disorders involving the immune mechanism
CPT/HCPCS: 72040; 73030; 99283; A4565; A9270

== ENCOUNTER 2022-07-01 13:53 | Emergency (ER) | payer OTHER, SELFPAY ==
[2022-07-01 13:55] VITALS: BP 132/82; PULSE 67; RESP 16; TEMP 36.4; O2SAT 100
== END 2022-07-01 15:32 | disposition left against medical advice (07) ==
LOC: ANHED 15:35
PROVIDERS: PCP Emergency Medicine
DX: M25.512 Pain in left shoulder (principal)
CPT/HCPCS: 99199